=== PATIENT | male | born 1985 | race Caucasian/White ===

== ENCOUNTER 2020-08-24 11:52 | Emergency (ER) | payer OTHER, SELFPAY ==
[2020-08-24 11:53] VITALS: BP 148/87; PULSE 83; RESP 16; TEMP 35.7; O2SAT 93; BMI 26.6
--- NOTE | 2020-08-24 12:16 | CT_ITS ---
STUDY: CT SOFT TISSUE NECK WITH CONTRAST REASON FOR EXAM: Male, 35 years old. Left facial swelling. Possible cellulitis. RADIATION DOSAGE (If Supplied By Facility): CTDIvol = ( 11.25 ) mGy, DLP = ( 458.03 ) mGycm TECHNIQUE: The patient was scanned in a multi-detector CT scanner. High resolution transaxial imaging was performed following intravenous administration of 100 cc of ISOVUE-300.. Sagittal and coronal images were reconstructed. Individualized dose optimization techniques were used for this CT. COMPARISON: None. FINDINGS: Diffuse subcutaneous swelling with overlying skin thickening along the left facial region extending into the anterior aspect of the mandible. To a lesser extent, there is also evidence of subcutaneous edema in the right subcutaneous fat. Submental nodes are seen. Normal bilateral parotid glands. Normal bilateral metal furniture repairer spaces. Normal bilateral parapharyngeal spaces. Normal bilateral carotid spaces. Normal bilateral sublingual and submandibular glands and spaces. Normal visualized nasopharynx. Normal retropharyngeal space. Normal perivertebral space. Normal visualized bilateral faucial tonsils. The visualized tongue, tongue base and oropharynx are normal. There are minimally enlarged lymph nodes of the neck, with preservation of normal mariel architecture, consistent with a reactive lymph hyperplasia. There is no demonstrated solid or cystic mass lesion. There is no abnormal contrast enhancement. Normal epiglottis, bilateral vallecula and hypopharynx. The pre-epiglottic and paraglottic adipose spaces are normal. Normal visualized bilateral piriform sinuses, aryepiglottic folds, vocal cords, and arytenoid-cricoid articulations. Normal subglottic trachea. Normal bilateral lobes of the thyroid gland. Normal visualized pulmonary apices. Air-fluid level in the right maxillary sinus in keeping with sinusitis. Normal visualized cervical spine. CT/Soft Tissue Neck WITH Contrast IMPRESSION: Bilateral facial swelling slightly worse on the left side with right maxillary sinusitis. Mildly enlarged cervical and submental lymph nodes. Electronically Signed: Tevin Ahmadi MD at 13:53 EDT , Service support ,
--- NOTE | 2020-08-24 12:18 | EDS_ITS ---
HPI History of Present Illness Chief Complaint: Cellulitis Informant: patient and family Onset/Context/Timing Onset: Weeks (1) Context: Gradual Onset Timing: Continuous Quality: Pain, swelling, blistering Location: Left face and ear Current Severity: Moderate Maximum Severity: Moderate Worsened by: Palpation, moving jaw, touching ear Relieved by: Nothing Narrative Narrative: Patient has had progressively worsening rash and swelling on his left face for the past week. He was initially seen at an urgent care, symptoms started in his left ear, progressed toward his mouth. He states he was placed on amoxicillin and steroids, he later was seen at [facility] in [place], they gave him IV antibiotics and IV steroids, did a CT scan and told him it was cellulitis and sinusitis. He presents today because now he has some blurry vision and discomfort in his eye along with some discharge, and progression of everything. He states he has chronic tinnitus in the left ear but can usually hear okay and now it is a little muffled. No discharge from the ear. Patient did have varicella when he was a child and no history of shingles. PFSH PFSH no medical history Home Medications amoxicillin-pot clavulanate [Augmentin] 1 tab PO BID 08/24/20 [History Last Taken Unknown] oxycodone-acetaminophen [Percocet] 1 tab PO Q4H PRN 3 Days #15 tab 08/24/20 [Rx Last Taken Unknown] prednisone 20 mg PO DAILY 08/24/20 [History Last Taken Unknown] prednisone 60 mg PO DAILY 2 Days #6 tablet 08/24/20 [Rx Last Taken Unknown] Allergy/AdvReac Type Severity Reaction Status Date / Time No Known Allergies Allergy Verified 08/24/20 11:53 Social History Smoking Status: Current every day smoker tobacco type: cigarettes ROS ROS ED Constitutional Constitutional ED: Denies chills or fever(s) Eyes Eyes: Reports blurry vision left and other Details: No glasses or contacts ; Denies change in vision or diplopia ENT ENT ED: Reports as per HPI, discharge from eye(s) left, ear pain left and facial pain; Denies rhinorrhea or sore throat Cardiovascular Cardiovascular: Denies chest pain or palpitations Respiratory/Chest Respiratory/Chest: Denies cough or dyspnea Gastrointestinal Gastrointestinal: Denies abdominal pain, diarrhea, nausea or vomiting Genitourinary Genitourinary ED: Denies dysuria or hematuria Musculoskeletal Musculoskeletal: Denies back pain or neck pain Integumentary Reports as per HPI and rash; Denies abscess Neurologic Neurologic: Denies headache(s), paresthesias or weakness Psychiatric Psychiatric: Denies anxiety or suicidal thoughts EXAM Physical Exam Const Vital Signs: 08/24/20 11:53 08/24/20 13:48 Temperature 96.3 F L 97.2 F L Temperature Source Temporal Temporal Pulse Rate 83 68 Respiratory Rate 16 14 Blood Pressure 148/87 H 136/86 H Blood Pressure Mean 107 102 Pulse Ox 93 98 Oxygen Delivery Method Room Air Room Air Positive well nourished and well developed General Appearance ED: well developed and NAD HEENT Reports moist mucous membranes HEENT Narrative: Rash on the left side of the face. See skin exam. External auditory canal, pinna, tragus all very tender to manipulation. TM appears to be affected on the left. Tongue has some papular lesions on the left side only. No active discharge or abscess. No discharge from Stensen's duct. Mild trismus due to swelling and pain but able to open mouth for inspection, oral mucosa are normal other than the tongue. normocephalic and atraumatic Eyes PERRL and EOMs intact bilaterally Neck full ROM and supple Resp normal respiratory effort Back/Spine normal to inspection General Back: other FROM Extremity normal to inspection General Extremety ED: Negative for edema, pulses abnormal or tenderness General Extremity: Negative for edema or pulses abnormal Neuro oriented x3, CN's II-XII intact bilaterally and no sensory deficits noted Sensorium / Orientation: awake and alert Motor Exam: strength 5/5 throughout Psych mental status grossly normal, thought process normal, cooperative, affect normal and speech normal Skin no wounds Skin Narrative: Crusty almost pustular, very tender rash left face from the ear to the lips, stopping at the midline and also includes the left side of the tongue. Lesions progress up to the lateral canthus of the left eye as well as inside the external auditory canal. No lesions elsewhere, the right side of the face is completely spared. MDM MDM MDM Narrative Medical decision making narrative: I performed a CT soft tissue of the neck and face, it shows some mild diffuse swelling in the skin that is seen clinically, and it does show sinusitis but it is in the contralateral maxillary sinus, he has no symptoms or tenderness there, and I think it is incidental. 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 I see no dendritic lesions or any corneal lesions of any type. He can raise his forehead symmetrically right now does not have a facial droop. I discussed with Dr. Chakraborty, and he thinks it is reasonable to have him follow-up in the office. He is already on steroids, we will not start him on antiviral since he is a week out from the onset, but since the rash stops at the midline anteriorly and includes half of his tongue I think it is fairly obvious that this is herpes zoster. I think he should finish the antibiotic since he has been on it for almost a week now, I gave him pain medication, and also follow-up with ophthalmology to get a better look at his cornea. I discussed with the patient that he may develop a Jordan's palsy, and that may be why he is having excessive tearing in the left eye right now. With regards to the steroids, he started the prednisone on Sunday 08/20, and was taking 80 mg a day, he was seen at the hospital several days ago where they gave him some IV steroids so he only took one 20 mg tablet that day, and he took the last of his prednisone yesterday. We will give him a dose of prednisone before he gets discharged today, and then prescribe him another 2 days of 60 mg daily to complete the 1 week recommended course for zoster. Lab Data Attestation: I reviewed the patient's lab results. Labs: Laboratory Results - last 24 hr 08/24/20 08/24/20 12:39 12:39 WBC 11.5 H RBC 5.27 Hgb 16.1 Hct 48.2 MCV 91.5 MCH 30.6 MCHC 33.4 RDW Std Deviation 40.5 RDW Coeff of Doron 12.2 Plt Count 213 MPV 11.2 Immature Gran % (Auto) 1.200 H Neut % (Auto) 72.7 H Lymph % (Auto) 13.8 L [place] % (Auto) 10.6 H Eos % (Auto) 1.1 Baso % (Auto) 0.6 Absolute Neuts (auto) 8.4 H Absolute Lymphs (auto) 1.59 Nucleated RBC % 0 Sodium 141 Potassium 4.3 Chloride 103 Carbon Dioxide 35.0 H Anion Gap 3 L BUN 22 H Creatinine 1.22 Estim Creat Clear Calc 84.51 Est GFR (MDRD) Af Amer 87 Est GFR (MDRD) Non-Af 72 BUN/Creatinine Ratio 18.0 Glucose 97 Calcium 9.1 Radiography Diagnostic Testing: Radiology Impression Soft Tissue Neck CT 08/24/20 12:16 IMPRESSION: Bilateral facial swelling slightly worse on the left side with right maxillary sinusitis. Mildly enlarged cervical and submental lymph nodes. 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) Instructions: ED Shingles (Herpes Zoster) Prescriptions: New oxycodone-acetaminophen [Percocet] 5-325 mg tablet 1 tab PO Q4H PRN (Reason: pain) 3 Days Qty: 15 RF: 0 prednisone 20 mg tablet 60 mg PO DAILY 2 Days Qty: 6 RF: 0 No Action prednisone 20 mg Tablet 20 mg PO DAILY RF: 0 amoxicillin-pot clavulanate [Augmentin] 875-125 mg Tablet 1 tab PO BID RF: 0 Primary Care Provider: Care Physician,No Primary Referrals: Micky Chakraborty MD [STAFF PHYSICIAN] - (call for appt) Mariel Gresham MD [STAFF PHYSICIAN] - (call for appt) Care Physician,No Primary [Primary Care Provider] - Disposition Disposition: Home, Self Care
[2020-08-24] MEDS: 0.9% Normal Saline 1,000 ML 999 ML IV (12:29)
[2020-08-24] MEDS: oxyCODONE 5 MG Tablet PO ×2 (12:29→15:21)
[2020-08-24] MEDS: Fluorescein 1 MG STRIP 1 STRIP LEFT EYE (12:29)
[2020-08-24 12:51] LABS: Absolute Lymphocyte Count 1.59 X10^3/uL (0.83-4.51); Absolute Neutrophil Count 8.4 X10^3/uL (2.0-7.7); Basophil# 0.07 X10^3/uL; Basophil% 0.6 % (0-1); Eosinophil# 0.13 X10^3/uL; Eosinophils% 1.1 % (0-5); Hematocrit 48.2 % (40-54); Hemoglobin 16.1 g/dL (13.0-16.5); Lymphocyte # 1.59 X10^3/ul (0.83-4.51); Lymphocyte % 13.8 % (19-41); Mean Corp Hgb Conc 33.4 g/dL (32-36); Mean Corpuscular Hgb 30.6 pg (27.0-32.0); Mean Corpuscular Volume 91.5 fL (80-94); Mean Platelet Vol. 11.2 fl (6.2-12.0); Monocyte# 1.22 X10^3/uL; Monocyte% 10.6 % (0-10); NRBC Flagged by Analyzer 0 % (0-5); Neutrophil # 8.35 X10^3/uL (2.7-7.7); Neutrophil % 72.7 % (47-70); Platelet Count 213 K/mm3 (150-450); RBC Distribution Width CV 12.2 % (11.6-14.6); RBC Distribution Width SD 40.5 fl (35.1-43.9); Red Blood Count 5.27 M/mm3 (4.6-6.2); White Blood Count 11.5 K/mm3 (4.4-11.0)
[2020-08-24 13:02] LABS: Anion Gap 3 (5-15); BUN 22 mg/dL (7-18); Calcium,Total 9.1 mg/dL (8.5-10.1); Chloride 103 mmol/L (98-107); Creatinine, Serum 1.22 mg/dL (0.70-1.30); EST Glomerular Filtration Rate 72 mL/min (>60); Est Glom Filt Rate - Afr Amer 87 mL/min (>60); Estimated Creatinine Clearance 84.51 ml/min; Glucose 97 mg/dL (74-106); Potassium 4.3 mmol/L (3.5-5.1); Sodium Level 141 mmol/L (136-145)
[2020-08-24 13:48] VITALS: BP 136/86; PULSE 68; RESP 14; TEMP 36.2; O2SAT 98
--- NOTE | 2020-08-24 14:26 | CM.ED ---
SW Note Reason for Referral: No PCP Referral Source: Case Find SW met with patient and his in the room. [facility] said that the PCP providers list ([facility]) is helpful. No other SW needs identified at the time. SW remains available. Sylvia CARRENO
[2020-08-24] MEDS: predniSONE 20 MG Tablet 60 MG PO (15:22)
[2020-08-24 15:36] VITALS: RESP 16
== END 2020-08-24 15:36 | disposition home or self-care (01) ==
PROVIDERS: Emergency Provider Emergency Medicine
DX: B02.21 Postherpetic geniculate ganglionitis (principal); F17.210 Nicotine dependence, cigarettes, uncomplicated; Z79.52 Long term (current) use of systemic steroids
CPT/HCPCS: 70491; 80048; 85025; 96360; 99285; J7030; Q9967